=== PATIENT | female | born 1975 | race Asian ===

== ENCOUNTER 2016-12-23 22:07 | Emergency (ER) | payer OTHER ==
[2016-12-23 22:29] VITALS: BP 111/77; PULSE 88; RESP 16; TEMP 98.2; O2SAT 99
[2016-12-23 22:36] LABS: APPEARANCE,URINE Cloudy; BILIRUBIN,URINE NEGATIVE (NEGATIVE); COLOR,URINE Yellow; GLUCOSE, URINE (UA) NEGATIVE (NEGATIVE); KETONES,URINE NEGATIVE (NEGATIVE); LEUKOCYTE ESTERASE ,URINE 1+ (NEGATIVE); NITRATE,URINE NEGATIVE (NEGATIVE); OCCULT BLOOD,URINE 3+ (NEG-TRACE); UROBILINOGEN,URINE 0.2 (0.2-1.0 EU)
[2016-12-23 22:55] LABS: RBC,URINE 70-80 (0-3AV/HPF); WBC,URINE 80-100 (0-5AV/HPF)
[2016-12-23] MEDS ORDERED: CIPROFLOXACIN HCL 500 MG TAB PO ONE (23:08)
== END 2016-12-23 23:23 | disposition home or self-care (01) ==
LOC: ED 22:07
DX: N39.0 Urinary tract infection, site not specified (principal)
CPT/HCPCS: 81001; 87077; 87088; 87186; 99282; 99283